=== PATIENT | female | born 1960 | race Caucasian/White ===

== ENCOUNTER 2017-06-22 10:32 | Outpatient (CLI) | payer BC, OTHER | END 2017-06-22 10:33 | disposition home or self-care (01) | LOC: DTY/OP 10:32 | PROVIDERS: ATTEND Surgery | DX: E66.01 Morbid (severe) obesity due to excess calories (principal) | CPT/HCPCS: 97802 ==

== ENCOUNTER 2017-12-18 16:00 | Inpatient (IN) | payer BC ==
[2017-12-18 16:01] VITALS: BMI 37.1
[2017-12-24] MEDS ORDERED: Heparin 5,000 UNITS/ML VIAL ONE (06:27)
[2017-12-24] MEDS ORDERED: CEFAZOLIN/Water 2 GM/20 ML SYRINGE ONE (06:27)
[2017-12-24] MEDS ORDERED: Bupivacaine/Epinephrine 0.25% 30 ML VIAL ONE ×2 (06:33)
[2017-12-24] MEDS ORDERED: Dexamethasone 20 MG/5 ML VIAL ONE (07:09)
[2017-12-24] MEDS ORDERED: Ondansetron HCl/PF 4 MG/2 ML Vial ONE (07:09)
[2017-12-24] MEDS ORDERED: Glycopyrrolate 0.2 MG/ML 5 ML SYRINGE ONE (07:09)
[2017-12-24] MEDS ORDERED: Ketorolac Tromethamine 30 MG/ML VIAL ONE (07:09)
[2017-12-24] MEDS ORDERED: Lidocaine 1% PF 5 ML VIAL ONE (07:09)
[2017-12-24] MEDS ORDERED: PROPOFOL 200 MG/20 ML VIAL ONE (07:09)
[2017-12-24] MEDS ORDERED: Midazolam HCl 2 mg/2 ml Vial ONE ×2 (07:17→07:24)
[2017-12-24] MEDS ORDERED: Fentanyl 100 MCG/2 ML VIAL ONE (07:18)
[2017-12-24] MEDS ORDERED: Lidocaine 1% (PF) 30 ML VIAL ONE (07:18)
[2017-12-24] MEDS ORDERED: HYDROmorphone 0.5 MG/0.5 ML SYRINGE ONE ×2 (07:18→09:38)
[2017-12-24] MEDS ORDERED: HYDROmorphone 10 mg/100 ml CADD IVPB PRN (07:23)
[2017-12-24] MEDS ORDERED: Ondansetron HCl/PF 4 MG/2 ML Vial IVP PRN ×3 (07:23→09:01)
[2017-12-24] MEDS ORDERED: Naloxone HCl 0.4 mg/ml Vial IV PRN (07:23)
[2017-12-24] MEDS ORDERED: Zolpidem Tartrate 5 MG TAB PO PRN (07:23)
[2017-12-24] MEDS ORDERED: Promethazine HCl 25 MG/ML VIAL IM PRN ×3 (07:23→09:01)
[2017-12-24] MEDS ORDERED: diphenhydrAMINE 50 MG/ML VIAL IVP PRN ×2 (07:23→09:01)
[2017-12-24] MEDS ORDERED: diphenhydrAMINE 50 MG/ML VIAL IM PRN (07:23)
[2017-12-24] MEDS ORDERED: HYDROmorphone 2 MG/ML VIAL SLOW IVP PRN (07:23)
[2017-12-24] MEDS ORDERED: Promethazine HCl 25 MG/ML VIAL SLOW IVP PRN (07:23)
[2017-12-24] MEDS ORDERED: diphenhydrAMINE 25 MG CAP PO PRN (07:23)
[2017-12-24] MEDS ORDERED: Communication Order-Pharmacy FS SCH (07:30)
[2017-12-24] MEDS ORDERED: Hydrocodone-Acetamin 15 ML UDCUP PO PRN (09:01)
[2017-12-24] MEDS ORDERED: Dextrose 50% Abboject 50 ML SYRINGE SLOW IVP PRN (09:01)
[2017-12-24] MEDS ORDERED: Dextrose 5% in Water 1,000 ML IV PRN (09:01)
[2017-12-24] MEDS ORDERED: hydrALAZINE 20 MG/ML VIAL SLOW IVP PRN (09:01)
--- NOTE | 2017-12-24 09:36 | OP ---
PREOPERATIVE DIAGNOSIS: Morbid obesity. SURGEON: Preston Macedo M.D. PROCEDURE PERFORMED: Laparoscopic sleeve gastrectomy with esophagogastroscopy. INDICATIONS: A 57-year-old female, morbidly obese, who has attempted multiple weight loss programs w [facility]. FINDINGS: A 38 [place] bougie used. PROCEDURE IN DETAIL: After informed consent was obtained, the patient was taken to the operating jason m, given general endotracheal anesthesia and placed in the supine position. The abdomen was prepped and draped in usual fashion. Local anesthesia infiltrated subcutaneously and deep. A 12 mm incision was performed approximately 8 inches below the xiphoid slightly to the left. Veress needle inserted . Drop test performed. Pneumoperitoneum was created to a volume of 2 liters of carbon dioxide. Uti lizing a bladeless 12 mm trocar and 0 degree laparoscope direct visual entry in the abdominal cavity was performed. Pneumoperitoneum was created to a pressure of 15 mmHg. The patient placed in steep r everse Trendelenburg position. Nathansen liver retractor inserted. Left lobe of liver retracted sup eriorly. Now, she had quite a bit of adhesions from a recent open cholecystectomy, so two 12 mm port placed on the left side and a laparoscopic lysis of adhesions was performed to free up the anterior abdominal wall in the right side. Then, a 12 mm incision was performed on the right and another 12 m m port placed over there. Then the omentum was taken off the greater curvature 5 cm from the pylorus . Short gastrics divided with LigaSure and then the left crura defined with the LigaSure. A 38-Fren ch bougie inserted directed into the antrum. The linear 60 mm green load stapler used to divide the antrum to the bougie, gold load along the bougie, and a series of blues through the angle of His, brice gie removed. Intraoperative endoscopy was performed. The video endoscope inserted under direct visi on. The staple line inspected. There was no bleeding. Staple line then tested by inflating the new stomach with pressurized air under water. There was no air leak. Stomach decompressed. Scope hair serenity. The remnant stomach removed from the abdomen through the left lateral port site. The fascia cl osed with 0 Vicryl suture and the GraNee needle. Trocars and retractors removed. Skin closed with i nterrupted 4-0 Rapide. Dermabond applied. The patient tolerated the procedure well and was transfer red to recovery in good condition. Sponge and needle count verified correct x2.
[2017-12-24] MEDS ORDERED: Promethazine HCl 25 MG/ML VIAL ONE (09:43)
[2017-12-24] MEDS: Acetaminophen 1,000 MG in Premix Bag 1 BAG IVPB SCH ×2 (12:39→18:43)
[2017-12-24] MEDS: D5 1/2 NS w/20 mEq KCL 1,000 ML IV SCH ×3 (12:40→21:05)
[2017-12-24] MEDS: CEFAZOLIN/Water 2 GM/20 ML SYRINGE SLOW IVP SCH ×2 (14:51→21:05)
[2017-12-25] MEDS: Acetaminophen 1,000 MG in Premix Bag 1 BAG IVPB SCH ×3 (00:04→12:07)
[2017-12-25 05:46] LABS: #Basophils 0.1 thou/uL (0.0-0.2); #Lymphocytes 1.4 thou/uL (1.20-3.40); #Monocytes 0.7 thou/uL (0.11-0.59); #Neutrophils 7.2 thou/uL (1.40-6.50); %Basophils 0.6 % (0.0-1.0); %Eosinophils 0.1 % (0.0-10.0); %Lymphocytes 15.1 % (21.0-51.0); %Monocytes 7.8 % (0.0-10.0); %Neutrophils 76.4 % (42.0-75.0); Mean Corpuscular HGB CONC 34.4 g/dL (32.0-36.0); Mean Corpuscular Hemoglobin 32.2 pg (27.0-31.0); Mean Corpuscular Volume 93.4 fl (81.0-99.0); Mean Platelet Volume 6.6 fL (7.4-10.4); Platelet Count 268 thou/uL (130-400); RBC Distribution Width 12.1 % (11.5-14.5); Red Blood Cell (RBC) Count 2.79 mill/uL (4.20-5.40); White Blood Cell (WBC) Count 9.4 thou/uL (4.8-10.8)
[2017-12-25 06:26] LABS: Anion Gap 10 mmol/L (10-20); BUN (Urea Nitrogen) 16 mg/dL (9.8-20.1); Calc. Creatinine Clearance 107 mL/min (70-130); Calcium 8.2 mg/dL (7.8-10.44); Carbon Dioxide 22 mmol/L (22-29); Chloride 106 mmol/L (98-107); Estimated GFR-MDRD 61; Glucose 126 mg/dL (70-105); Sodium 134 mmol/L (136-145)
[2017-12-25] MEDS ORDERED: Enoxaparin Sodium 40 MG/0.4 ML SYRINGE SC SCH (09:00)
[2017-12-25] MEDS ORDERED: Pantoprazole 40 MG VIAL IVP SCH (09:00)
[2017-12-25] MEDS: D5 1/2 NS w/20 mEq KCL 1,000 ML IV SCH (09:36)
--- NOTE | 2017-12-25 09:41 | RAD ---
ESOPHAGRAM: Date: 12/25/17 HISTORY: Obesity. Bariatric surgery. FINDINGS/IMPRESSION: Single column contrast evaluation shows postoperative changes of the stomach consistent with recent g astric sleeve procedure. There is no evidence of obstruction or leak. POS: MIGUEL
--- NOTE | 2017-12-25 11:00 | DIS ---
DISCHARGE DIAGNOSIS: Morbid obesity. PROCEDURES DURING ADMISSION: Laparoscopic sleeve gastrectomy, intraoperative esophagogastroscopy, an d postoperative Gastrografin swallow. HOSPITAL COURSE: The patient was admitted, taken to the operating room where she underwent a sleeve gastrectomy. Postoperatively, she has done well. She is tolerating liquids well. X-ray was fine. She is discharged home on hydrocodone and Zofran. She will follow up with me in 2 weeks.
[2017-12-25 11:41] VITALS: BP 134/74; TEMP 98.1
== END 2017-12-25 12:10 | disposition home or self-care (01) | DRG 621 ==
LOC: SURG A 12-24 05:43
PROVIDERS: ADMIT Surgery; ATTEND Surgery
PROC: 0DB64Z3 Excision of Stomach, Percutaneous Endoscopic Approach, Vertical (ICD-10-PCS; principal; 2017-12-24)
PROC: 0DNW4ZZ Release Peritoneum, Percutaneous Endoscopic Approach (ICD-10-PCS; 2017-12-24)
DX: E66.01 Morbid (severe) obesity due to excess calories (principal); K66.0 Peritoneal adhesions (postprocedural) (postinfection); Z68.37 Body mass index [BMI] 37.0-37.9, adult; I10 Essential (primary) hypertension; E78.5 Hyperlipidemia, unspecified
CPT/HCPCS: 36415; 74241; 80048; 85025; 88307; 88312; C9113; J0131; J1100; J1170; J1644; J1650; J1885; J2001; J2250; J2405; J2550; J2704; J3010